=== PATIENT | male | born 1970 | race Caucasian/White ===

== ENCOUNTER 2016-12-03 23:48 | Emergency (ER) | payer SELFPAY ==
[~2016-12-03] VITALS: Ht 185.4 cm; Wt 120.2 kg
[~2016-12-03 23:48] MED LIST: ALLP100T PO; CYCL5TAB11 PO; INDO25CA PO
[2016-12-04] MEDS ORDERED: NS IV 1000 ML 1,000 ML IV ONE (00:54)
[2016-12-04 01:37] LABS: BASOPHILS % (AUTO) 0 % (0-10); EOSINOPHILS # (AUTO) 0.1 10^3/uL (0.0-0.3); EOSINOPHILS % (AUTO) 1 % (0-10); LYMPHOCYTES # (AUTO) 2.1 X 10^3 (1.0-4.0); LYMPHOCYTES % (AUTO) 27 % (12-44); MEAN CORPUSCULAR HEMOGLOBIN 31 PG (25-34); MEAN CORPUSCULAR HGB CONC 35 G/DL (32-36); MEAN CORPUSCULAR VOLUME 89 FL (80-99); MEAN PLATELET VOLUME 11.6 FL (7.4-10.4); MONOCYTES # (AUTO) 0.6 X 10^3 (0.0-1.0); MONOCYTES % (AUTO) 8 % (0-12); NEUTROPHILS # (AUTO) 4.8 X 10^3 (1.8-7.8); NEUTROPHILS % (AUTO) 63 % (42-75); PLATELET COUNT 221 10^3/uL (130-400); RED BLOOD COUNT 4.52 10^6/uL (4.35-5.85); WHITE BLOOD COUNT 7.7 10^3/uL (4.3-11.0)
[2016-12-04 02:02] LABS: ALANINE AMINOTRANSFERASE 40 U/L (0-55); ALBUMIN 4.4 GM/DL (3.2-4.5); ALCOHOL 174 MG/DL (<10); ANION GAP 12 MMOL/L (5-14); ASPARTATE AMINO TRANSFERASE 35 U/L (5-34); BILIRUBIN,TOTAL 0.5 MG/DL (0.1-1.0); BLOOD UREA NITROGEN 12 MG/DL (7-18); BUN/CREATININE RATIO 9; CALCIUM 9.8 MG/DL (8.5-10.1); CARBON DIOXIDE 24 MMOL/L (21-32); CHLORIDE 99 MMOL/L (98-107); CREATININE SERUM 1.33 MG/DL (0.60-1.30); GFR ESTIMATED 59; GLUCOSE 131 MG/DL (70-105); MAGNESIUM 2.6 MG/DL (1.8-2.4); POTASSIUM 4.1 MMOL/L (3.6-5.0); SODIUM 135 MMOL/L (135-145); TOTAL PROTEIN 8.2 GM/DL (6.4-8.2)
[2016-12-04 02:31] LABS: TROPONIN I < 0.30 NG/ML (<0.30)
--- NOTE | 2016-12-04 02:36 | ED Syncope ---
General Chief Complaint: Dizziness/Syncope Stated Complaint: POSS SEIZURE Nursing Triage Note: approx. 30 second syncopal episode while playing cards. no injury/other complaints. Allergies and Home Medications Allergies Coded Allergies: No Known Drug Allergies (Unverified , 08/05/12) Home Medications Allopurinol 100 Mg Tab, 100 MG PO DAILY, (Reported) Cyclobenzaprine Hcl 5 Mg Tablet, 1 EACH PO Q8HR PRN, (Reported) Indomethacin 25 Mg Capsule, 25 MG PO DAILY, (Reported) Past Lbdsemq-Ibbqvw-Gpoypp Hx Patient Social History Alcohol Use: Occasionally Uses Recreational Drug Use: No Smoking Status: Current Everyday Smoker Type Used: Cigarettes 2nd Hand Smoke Exposure: Yes Recent Foreign Travel: No Contact w/Someone Who Travel: No Recent Infectious Disease Expo: No Recent Hopitalizations: No Immunizations Up To Date Tetanus Booster (TDap): Unknown Seasonal Allergies Seasonal Allergies: No Surgeries HX Surgeries: Yes (R ARM) Surgeries: Orthopedic Respiratory Hx Respiratory Disorders: No Cardiovascular Hx Cardiac Disorders: Yes Cardiac Disorders: High Cholesterol, Hypertension Neurological Hx Neurological Disorders: No Genitourinary Hx Genitourinary Disorders: No Gastrointestinal Hx Gastrointestinal Disorders: No Musculoskeletal Hx Musculoskeletal Disorders: No Endocrine Hx Endocrine Disorders: No HEENT HX ENT Disorders: No Cancer Hx Cancer: No Psychosocial Hx Psychiatric Problems: No Integumentary HX Skin/Integumentary Disorder: No Blood Transfusions Hx Blood Disorders: No Adverse Reaction to a Blood Tr: No Physical Exam Vital Signs Vital Sign - Last 12Hours 12/03/16 23:55 Temp 97.9 Pulse 107 Resp 18 B/P (MAP) 153/102 Pulse Ox 94 O2 Delivery Room Air Capillary Refill : Less Than 3 Seconds Progress/Results/Core Measures Results/Orders Lab Results Laboratory Tests Test 12/04/16 01:05 Range/Units White Blood Count 7.7 4.3-11.0 10^3/uL Red Blood Count 4.52 4.35-5.85 10^6/uL Hemoglobin 14.2 13.3-17.7 G/DL Hematocrit 40 40-54 % Mean Corpuscular Volume 89 80-99 FL Mean Corpuscular Hemoglobin 31 25-34 PG Mean Corpuscular Hemoglobin Concent 35 32-36 G/DL Red Cell Distribution Width 13.0 10.0-14.5 % Platelet Count 221 130-400 10^3/uL Mean Platelet Volume 11.6 H 7.4-10.4 FL Neutrophils (%) (Auto) 63 42-75 % Lymphocytes (%) (Auto) 27 12-44 % Monocytes (%) (Auto) 8 0-12 % Eosinophils (%) (Auto) 1 0-10 % Basophils (%) (Auto) 0 0-10 % Neutrophils # (Auto) 4.8 1.8-7.8 X 10^3 Lymphocytes # (Auto) 2.1 1.0-4.0 X 10^3 Monocytes # (Auto) 0.6 0.0-1.0 X 10^3 Eosinophils # (Auto) 0.1 0.0-0.3 10^3/uL Basophils # (Auto) 0.0 0.0-0.1 10^3/uL Sodium Level 135 135-145 MMOL/L Potassium Level 4.1 3.6-5.0 MMOL/L Chloride Level 99 98-107 MMOL/L Carbon Dioxide Level 24 21-32 MMOL/L Anion Gap 12 5-14 MMOL/L Blood Urea Nitrogen 12 7-18 MG/DL Creatinine 1.33 H 0.60-1.30 MG/DL Estimat Glomerular Filtration Rate 59 BUN/Creatinine Ratio 9 Glucose Level 131 H 70-105 MG/DL Calcium Level 9.8 8.5-10.1 MG/DL Magnesium Level 2.6 H 1.8-2.4 MG/DL Total Bilirubin 0.5 0.1-1.0 MG/DL Aspartate Amino Transf (AST/SGOT) 35 H 5-34 U/L Alanine Aminotransferase (ALT/SGPT) 40 0-55 U/L Alkaline Phosphatase 58 40-136 U/L Troponin I < 0.30 <0.30 NG/ML Total Protein 8.2 6.4-8.2 GM/DL Albumin 4.4 3.2-4.5 GM/DL Serum Alcohol 174 H <10 MG/DL My Orders Orders - STEPHANIA LEHMAN MD Normal Saline 1000ml Iv (12/04/16 00:54) Alcohol (12/04/16 00:54) Cbc With Automated Diff (12/04/16 00:54) Comprehensive Metabolic Panel (12/04/16 00:54) Magnesium (12/04/16 00:54) Troponin I (12/04/16 00:54) Saline Lock/Iv-Start (12/04/16 00:54) Ekg Tracing (12/04/16 00:54) Monitor-Rhythm Ecg Trace Only (12/04/16 00:54) Chest Pa/Lat (2 View) (12/04/16 00:54) Medications Given in ED Current Medications Medications Dose Ordered Sig/Brisa Route Start Time Stop Time Status Last Admin Dose Admin Sodium Chloride 1,000 ml @ 0 mls/hr Q0M ONCE IV 12/04/16 00:54 12/04/16 00:56 DC 12/04/16 01:07 0 MLS/HR Vital Signs/I&O Vital Sign - Last 12Hours 12/03/16 12/04/16 23:55 02:43 Temp 97.9 97.9 Pulse 107 89 Resp 18 18 B/P (MAP) 153/102 Pulse Ox 94 98 O2 Delivery Room Air Blood Pressure Mean: 119 ECG Initial ECG Impression Date: Dec 04, 2016 Initial ECG Impression Time: 01:05 Initial ECG Rate: 92 Initial ECG Rhythm: Normal Sinus Initial ECG Intervals: Normal Comment Normal sinus rhythm with no ST elevation or depression. Borderline left axis deviation. No abnormal intervals. Departure Impression Impression: Primary Impression: Syncope Qualified Codes: R55 - Syncope and collapse Additional Impressions: Renal insufficiency Alcohol intoxication Qualified Codes: F10.929 - Alcohol use, unspecified with intoxication, unspecified Disposition: 01 HOME, SELF-CARE Condition: Improved Departure-Patient Inst. Decision time for Depature: 02:33 Referrals: NO,LOCAL PHYSICIAN (PCP/Family) Primary Care Physician Patient Instructions: Syncope (Fainting) (DC) Add. Discharge Instructions: Follow-up with a primary care provider soon as possible. Avoid alcohol consumption and work towards smoking cessation in the meantime. Return to care if symptoms return or worsen. Call a primary care provider tomorrow to schedule an appointment. All discharge instructions reviewed with patient and/or family. Voiced understanding. STEPHANIA LEHMAN MD Dec 04, 2016 02:36
[2016-12-04 02:43] VITALS: BP 155/109
--- NOTE | 2016-12-04 08:25 | Diagnostic Imaging Report ---
INDICATION: Syncope. TECHNIQUE: Two view chest 1:50 AM CORRELATION STUDY: 04/18/2014 FINDINGS: The heart size, mediastinal configuration and pulmonary vasculature are within normal limits. The lungs are clear with no consolidating infiltrate. There is no significant pleural effusion or pneumothorax. Visualized osseous structures are unremarkable. IMPRESSION: 1. Negative for acute abnormality. Dictated by: Dictated on workstation # [id number]
--- OUTSIDE RECORDS SUMMARY | 2016-12-04 09:40 | XMS REPORT ---
Author Author ANEL RICKS [facility] [place] eClinicalWorks Address Unknown Phone Unavailable Care Team Providers Care Prepress Proofer Name Role Phone ANEL RICKS CP Unavailable Allergies, Adverse Reactions, Alerts Substance Reaction Event Type N.K.D.A. Info Not Available Non Drug Allergy Problems Problem Type Condition Code Onset Dates Condition Status Problem Lumbago M54.5 Active Problem Hyperlipidemia E78.5 Active Problem GERD (gastroesophageal reflux disease) K21.9 Active Problem Elevated blood pressure reading without diagnosis of hypertension R03.0 Active Assessment Hyperlipidemia E78.5 Active Problem Allergic rhinitis J30.9 Active Problem History of gout Z87.39 Active Medications Medication Code System Code Instructions Start Date End Date Status Dosage Fish Oil [facility] [place] [address]-37 2000 Orally Once a day December 28, 2014 Jun 26, 2015 1 capsule Omeprazole [facility] [place] [address]-08 20 MG Orally Once a day Apr 10, 2015 1 capsule Lipitor [facility] [place] [address]-04 80 MG Orally Once a day Apr 16, 2015 1 tablet Procedures Procedure Coding System Code Date Office Visit, Est Pt., Level 3 CPT-4 63798 May 28, 2015 Vital Signs Date/Time: May 28, 2015 Temperature 97.1 F Weight 268.0 lbs Height 72 in BMI 36.34 Index Blood Pressure Diastolic 88 mmHg Blood Pressure Systolic 124 mmHg Cardiac Monitoring Heart Rate 78 bpm Results No Known Results Summary Purpose eClinicalWorks Submission
--- OUTSIDE RECORDS SUMMARY | 2016-12-04 09:40 | XMS REPORT | Continuity of Care Document ---
Author Author [facility] Address Unknown Phone Unavailable Allergies Active Description Code Type Severity Reaction Onset Reported/Identified Relationship to Patient Clinical Status Yes No Known Drug Allergies [id number] Drug Allergy Unknown N/ A 08/05/2012 Medications Problems Date Dx Coded Attending Type Code Diagnosis Diagnosed By 01/16/2009 SHUKLA DO, YOON K V74.1 SCREENING EXAMINATION FOR PULMONARY TUBERCULOSIS 01/16/2009 SHUKLA DO, YOON K V74.1 SCREENING EXAMINATION FOR PULMONARY TUBERCULOSIS 01/16/2009 SHUKLA DO, YOON K V74.1 SCREENING EXAMINATION FOR PULMONARY TUBERCULOSIS 01/16/2009 SHUKLA DO, YOON K V74.1 SCREENING EXAMINATION FOR PULMONARY TUBERCULOSIS 07/12/2012 SHUKLA DO, YOON K 274.9 GOUT UNSPECIFIED 07/12/2012 SHUKLA DO, YOON K 274.9 Gout Unspecified 07/12/2012 SHUKLA DO, YOON K 274.9 Gout Unspecified 07/12/2012 SHUKLA DO, YOON K 274.9 Gout Unspecified 07/22/2012 SHUKLA DO, YOON K 530.81 GERD 07/22/2012 SHUKLA DO, YOON K 724.2 LUMBAGO 07/22/2012 SHUKLA DO, YOON K 786.50 CHEST PAIN 07/22/2012 SHUKLA DO, YOON K 530.81 GERD 07/22/2012 SHUKLA DO, YOON K 724.2 LUMBAGO 07/22/2012 SHUKLA DO, YOON K 786.50 chest pain or discomfort 07/22/2012 SHUKLA DO, YOON K 530.81 GERD 07/22/2012 SHUKLA DO, YOON K 724.2 LUMBAGO 07/22/2012 SHUKLA DO, YOON K 786.50 chest pain or discomfort 08/05/2012 SHUKLA DO, YOON K 272.4 DYSLIPIDEMIA 08/05/2012 SHUKLA DO, YOON K 272.4 DYSLIPIDEMIA 08/05/2012 SHUKLA DO, YOON K 272.4 DYSLIPIDEMIA 09/28/2013 SHUKLA DO, YOON K 274.00 GOUTY ARTHROPATHY UNSPECIFIED 09/28/2013 YOON SHUKLA DO 477.9 ALLERGIC RHINITIS CAUSE UNSPECIFIED Procedures Code [place] [address] ROUTINE VENIPUNCTURE 07/22/2012 33893 CBC 07/22/2012 64687 LIPID PANEL 07/22 55275 CMP 07/22/2012 7115113 GFR CALC (RESULT ONLY) 07/22/2012 99840 TSH 07/22/2012 93610 EKG, TRACING (IN-HOUSE) 07/27/2012 Results Encounters ACCT No. Visit Date/Time Discharge Status Pt. Type Provider Facility Loc./Unit Complaint [id number] 09/28/2013 13:35:00 09/28/2013 23: 59:59 CLS Outpatient YOON SHUKLA DO [id number] 08/27/2012 11:05:00 08/27/2012 23: 59:59 CLS Outpatient YOON SHUKLA DO [id number] 07/22/2012 09:07:00 07/22/2012 23: 59:59 CLS Outpatient YOON SHUKLA DO [id number] 07/12/2012 17:13:00 07/12/2012 23: 59:59 CLS Outpatient YOON SHUKLA DO
--- OUTSIDE RECORDS SUMMARY | 2016-12-04 09:40 | XMS REPORT ---
Author Author ANEL RICKS eClinicalWorks Address Unknown Phone Unavailable Care Team Providers Care Entry Level Account Manager Name Role Phone ANEL RICKS CP Unavailable Allergies, Adverse Reactions, Alerts Substance Reaction Event Type N.K.D.A. Info Not Available Non Drug Allergy Problems Problem Type Condition Code Onset Dates Condition Status Assessment Hyperlipidemia E78.5 Active Assessment Elevated blood pressure reading without diagnosis of hypertension R03.0 Active Problem Lumbago M54.5 Active Problem Hyperlipidemia E78.5 Active Problem GERD (gastroesophageal reflux disease) K21.9 Active Problem Elevated blood pressure reading without diagnosis of hypertension R03.0 Active Assessment GERD (gastroesophageal reflux disease) K21.9 Active Problem Allergic rhinitis J30.9 Active Problem History of gout Z87.39 Active Medications Medication Code System Code Instructions Start Date End Date Status Dosage Omeprazole [facility] [address]-88 20 MG Orally Once a day Apr 10, 2015 1 capsule Lipitor [facility] [address]-61 40 MG Orally Once a day December 28, 2014 1 tablet Procedures Procedure Coding System Code Date VENIPUNCT, ROUTINE* CPT-4 37091 Apr 10, 2015 Office Visit, Est Pt., Level 3 CPT-4 45111 Apr 10, 2015 LIPID PANEL CPT-4 64537 Apr 10, 2015 Vital Signs Date/Time: Apr 10, 2015 Temperature 98.0 F Weight 265.9 lbs Height 72 in BMI 36.06 Index Blood Pressure Diastolic 94 mmHg Blood Pressure Systolic 128 mmHg Cardiac Monitoring Heart Rate 84 bpm Results Name Result Date Reference Range Unit Abnormality Flag ROUTINE VENIPUNCTURE Summary Purpose eClinicalWorks Submission
--- OUTSIDE RECORDS SUMMARY | 2016-12-04 09:40 | XMS REPORT ---
Author Author ANEL RICKS [facility] eClinicalWorks Address Unknown Phone Unavailable Care Team Providers Care Disease Control Inspector Name Role Phone ANEL RICKS CP Unavailable Allergies No Known Allergies Problems Problem Type Condition Code Onset Dates Condition Status Problem Lumbago M54.5 Active Problem Hyperlipidemia E78.5 Active Problem GERD (gastroesophageal reflux disease) K21.9 Active Problem Elevated blood pressure reading without diagnosis of hypertension R03.0 Active Problem Allergic rhinitis J30.9 Active Problem History of gout Z87.39 Active Medications Medication Code System Code Instructions Start Date End Date Status Dosage Lipitor [facility] [address]-47 80 MG Orally Once a day Apr 16, 2015 1 tablet Results No Known Results Summary Purpose eClinicalWorks Submission
== END 2016-12-04 02:39 | disposition home or self-care (01) ==
LOC: ER 23:48 → EDUNIT# 23:48 → ER 12-04 02:39
DX: R55 Syncope and collapse (principal); N28.9 Disorder of kidney and ureter, unspecified; F10.129 Alcohol abuse with intoxication, unspecified
CPT/HCPCS: 36415; 71020; 80053; 80320; 83735; 84484; 85025; 93005; 93041; 96360

== ENCOUNTER 2019-06-13 23:21 | Emergency (ER) | payer SELFPAY ==
[~2019-06-13] VITALS: Ht 182 cm; Wt 125.0 kg
[2019-06-13] MEDS ORDERED: ASPIRIN 81 MG CHEW (CHILDREN'S ASA) ONE (23:32)
--- NOTE | 2019-06-13 23:40 | ED General ---
General Stated Complaint: FEELS HOT,DIZZY, LEFT ARM NUMBNESS Source of Information: Patient, Other Exam Limitations: No Limitations History of Present Illness Date Seen by Provider: Jun 13, 2019 Time Seen by Provider: 23:27 Initial Comments Patient presents to ER with his friend by private conveyance with a chief complaint of approximately one to 2 hours prior to arrival he started to experience some dizziness, hot flashes, left arm numbness while laying down the couch watching TV. The night before he had a binge of drinking and smoking. He's never had an experience like this before. He says he sat up on the couch and his symptoms got better. He denies turning over moving his head when the symptoms started. He describes the dizziness as feeling like he was moving as well as like he might pass out. He states that it lasted for a few minutes and went away. No known medical history other than history of high blood pressure but he does not follow with a doctor nor take any medication. He uses marijuana occasionally. On regular basis he smokes one or 2 cigarettes per day and typically binge drinks alcohol. He denies any other recreational drugs. He denies any nausea vomiting diarrhea constipation or abdominal pain chest pain shortness of breath cough wheezing. He does not follow with a primary care provider. He does not have any gainful employment at this time. He has a history of vasovagal syncope. Allergies and Home Medications Allergies Coded Allergies: No Known Drug Allergies (Unverified , 08/05/12) Home Medications Allopurinol 100 Mg Tab, 100 MG PO DAILY, (Reported) Cyclobenzaprine Hcl 5 Mg Tablet, 1 EACH PO Q8HR PRN, (Reported) Indomethacin 25 Mg Capsule, 25 MG PO DAILY, (Reported) Patient Home Medication List Home Medication List Reviewed: Yes Review of Systems Review of Systems Constitutional: No chills, No diaphoresis EENTM: No ear discharge, No hearing loss Respiratory: No cough, No short of breath Cardiovascular: No chest pain, No edema Gastrointestinal: No abdominal pain, No constipation, No diarrhea, No nausea Genitourinary: No discharge, No dysuria Musculoskeletal: No back pain, No joint pain Skin: No pruritus, No rash Psychiatric/Neurological: Denies Headache, Denies Numbness, Denies Paresthesia Hematologic/Lymphatic: Denies Blood Clots, Denies Easy Bleeding All Other Systems Reviewed Negative Unless Noted: Yes Past Ulowvxv-Yrbwkt-Togyao Hx Patient Social History Alcohol Use: Regular Use Alcohol Beverage of Choice: Whiskey Recreational Drug Use: Yes Drug of Choice: MJ Smoking Status: Current Everyday Smoker Type Used: Cigarettes 2nd Hand Smoke Exposure: Yes Recent Foreign Travel: No Contact w/Someone Who Travel: No Recent Hopitalizations: No Immunizations Up To Date Tetanus Booster (TDap): Unknown Seasonal Allergies Seasonal Allergies: No Past Medical History Surgeries: Yes (R ARM) Orthopedic Respiratory: No Cardiac: Yes High Cholesterol, Hypertension Neurological: No Genitourinary: No Gastrointestinal: No Musculoskeletal: No Endocrine: No HEENT: No Cancer: No Psychosocial: No Integumentary: No Blood Disorders: No Adverse Reaction/Blood Tranf: No Family Medical History Diabetes Physical Exam Vital Signs Vital Signs - First Documented 06/13/19 23:59 Temp 36.4 Pulse 103 Resp 14 B/P (MAP) 192/118 (142) Pulse Ox 98 O2 Delivery Room Air Capillary Refill : Height, Weight, BMI Height: 6'1.00" Weight: 265lbs. oz. 120.885877cv; BMI Method:Stated General Appearance: No Apparent Distress, Anxious, Obese Eyes: Bilateral Eye Normal Inspection, Bilateral Eye PERRL, Bilateral Eye EOMI HEENT: PERRL/EOMI, Pharynx Normal, Moist Mucous Membranes, TM Abnormal (L), TM Abnormal (R) (bilateral, mucoid, nonerythematous/noninjected mucoid effusion) Neck: Full Range of Motion, Normal Inspection, Non Tender Respiratory: Chest Non Tender, Lungs Clear, Normal Breath Sounds, No Accessory Muscle Use, No Respiratory Distress Cardiovascular: Regular Rate, Rhythm, No Edema, Normal Peripheral Pulses Gastrointestinal: Normal Bowel Sounds, Non Tender, Soft Extremity: Normal Capillary Refill, Normal Inspection, No Pedal Edema Neurologic/Psychiatric: Alert, Oriented x3, No Motor/Sensory Deficits, Normal Mood/Affect, netsuite developer II-XII Norm as Tested Skin: Normal Color, Warm/Dry Progress/Results/Core Measures Suspected Sepsis SIRS Temperature: Pulse: Respiratory Rate: Laboratory Tests 06/13/19 23:53: White Blood Count 7.3 Blood Pressure / Mean: Laboratory Tests 06/13/19 23:53: Creatinine 1.21, Platelet Count 208, Total Bilirubin 0.3 Results/Orders Lab Results Laboratory Tests Test 06/13/19 23:53 Range/Units White Blood Count 7.3 4.3-11.0 10^3/uL Red Blood Count 4.60 4.35-5.85 10^6/uL Hemoglobin 14.9 13.3-17.7 G/DL Hematocrit 41 40-54 % Mean Corpuscular Volume 89 80-99 FL Mean Corpuscular Hemoglobin 32 25-34 PG Mean Corpuscular Hemoglobin Concent 37 H 32-36 G/DL Red Cell Distribution Width 12.4 10.0-14.5 % Platelet Count 208 130-400 10^3/uL Mean Platelet Volume 11.1 H 7.4-10.4 FL Neutrophils (%) (Auto) 63 42-75 % Lymphocytes (%) (Auto) 26 12-44 % Monocytes (%) (Auto) 9 0-12 % Eosinophils (%) (Auto) 2 0-10 % Basophils (%) (Auto) 0 0-10 % Neutrophils # (Auto) 4.6 1.8-7.8 X 10^3 Lymphocytes # (Auto) 1.9 1.0-4.0 X 10^3 Monocytes # (Auto) 0.7 0.0-1.0 X 10^3 Eosinophils # (Auto) 0.1 0.0-0.3 10^3/uL Basophils # (Auto) 0.0 0.0-0.1 10^3/uL Sodium Level 138 135-145 MMOL/L Potassium Level 4.3 3.6-5.0 MMOL/L Chloride Level 104 98-107 MMOL/L Carbon Dioxide Level 19 L 21-32 MMOL/L Anion Gap 15 H 5-14 MMOL/L Blood Urea Nitrogen 16 7-18 MG/DL Creatinine 1.21 0.60-1.30 MG/DL Estimat Glomerular Filtration Rate > 60 BUN/Creatinine Ratio 13 Glucose Level 190 H 70-105 MG/DL Calcium Level 9.6 8.5-10.1 MG/DL Corrected Calcium 9.4 8.5-10.1 MG/DL Magnesium Level 1.8 1.6-2.4 MG/DL Total Bilirubin 0.3 0.1-1.0 MG/DL Aspartate Amino Transf (AST/SGOT) 27 5-34 U/L Alanine Aminotransferase (ALT/SGPT) 26 0-55 U/L Alkaline Phosphatase 67 40-136 U/L B-Type Natriuretic Peptide < 10.0 <100.0 PG/ML Total Protein 8.5 H 6.4-8.2 GM/DL Albumin 4.2 3.2-4.5 GM/DL My Orders Orders - SHAUNA WAY Aspirin Chewable Tablet (Baby Aspirin Ch (06/13/19 23:32) Cbc With Automated Diff (06/13/19 23:35) Magnesium (06/13/19 23:35) Chest 1 View, Ap/Pa Only (06/13/19 23:35) Ekg Tracing (06/13/19 23:35) Comprehensive Metabolic Panel (06/13/19 23:35) Myoglobin Serum (06/13/19 23:35) Protime With Inr (06/13/19 23:35) Partial Thromboplastin Time (06/13/19 23:35) O2 (06/13/19 23:35) Monitor-Rhythm Ecg Trace Only (06/13/19 23:35) Lipid Panel (06/14/19 06:00) Ed Iv/Invasive Line Start (06/13/19 23:35) BNP (06/13/19 23:35) Aspirin Chewable Tablet (Baby Aspirin Ch (06/13/19 23:45) Orthostatic Vital Signs (Adult (06/13/19 23:35) Ua Culture If Indicated (06/13/19 23:40) Drug Screen Stat (Urine) (06/13/19 23:40) Alcohol (06/13/19 23:53) Troponin I (06/13/19 23:53) Medications Given in ED Current Medications Medications Dose Ordered Sig/Brisa Route Start Time Stop Time Status Last Admin Dose Admin Aspirin 324 mg ONCE ONCE PO 06/13/19 23:45 06/13/19 23:46 DC 06/13/19 23:51 324 MG Vital Signs/I&O 06/13/19 06/13/19 23:59 23:59 Temp 36.4 Pulse 103 Resp 14 B/P (MAP) 192/118 (142) Pulse Ox 98 99 O2 Delivery Room Air Nasal Cannula Capillary Refill : Progress Note #1: Time: 23:43 Progress Note Vertigo versus atypical chest pain/angina? His hypertension is markedly 200/120. We'll give him a brief period For it to come down. EKG, chest x-ray, aspirin labs urinalysis, urine drug screen and alcohol level. Progress Note #2: Time: 00:28 Progress Note Blood pressure down to 150/100 spontaneously and his heart rates in the 80s. [place]-Hallpike was unsuccessful of reproducing any vertiginous symptoms. He has a stated history of vasovagal syncope. If his orthostatics are negative then we'll probably recommend he follow up with a primary care provider to discuss his high blood pressure and his symptoms as they may be related. We could start him on a low-dose amlodipine 5 mg daily for a week or 2. I don't suspect he'll be able to provide any urine today. This can be checked outpatient. If he was using any stimulant recreational democrat drugs last night then this could also contribute to his symptoms today. Orthostatics are unremarkable. ECG Initial ECG Impression Date: Jun 13, 2019 Initial ECG Impression Time: 23:32 Initial ECG Rate: 86 Initial ECG Rhythm: Normal Sinus Initial ECG Intervals: Normal Initial ECG Impression: Normal Initial ECG Comparisson: No Previous ECG Available Comment No clinically relevant ST elevation or depression. Normal sinus rhythm. Diagnostic Imaging Diagonstic Imaging: Xray Plain Films/CT/US/NM/MRI: chest Comments No acute cardiopulmonary processes noted on one view chest x-ray. Reviewed: Reviewed by Me Departure Impression Primary Impression: Dizziness Disposition: 01 HOME, SELF-CARE Condition: Stable Departure-Patient Inst. Decision time for Depature: 00:34 Referrals: NO,LOCAL PHYSICIAN (PCP/Family) Primary Care Physician Patient Instructions: High Blood Pressure in Adults, LOCAL PHYSICIAN LIST, Vertigo (a Type of Dizziness) (DC) Add. Discharge Instructions: Follow-up with the primary care provider choice. There is some further workup for your heart that can be done on the outpatient side. They can also help get your blood pressure under control which might be contributing to your symptoms. Return to the ER if you begin to experience chest pain, shortness of breath or worrisome symptoms. amlodipine 5mg daily for blood pressure. Scripts Amlodipine Besylate (Amlodipine Besylate) 5 Mg Tablet 5 MG PO DAILY for 14 Days, #14 TAB 0 Refills Prov: SHAUNA WAY 06/14/[address] Jun 13, 2019 23:40
[2019-06-13] MEDS ORDERED: ASPIRIN 81 MG CHEW (CHILDREN'S ASA) PO ONE (23:45)
[2019-06-13 23:59] LABS: BASOPHILS % (AUTO) 0 % (0-10); EOSINOPHILS # (AUTO) 0.1 10^3/uL (0.0-0.3); EOSINOPHILS % (AUTO) 2 % (0-10); HEMATOCRIT 41 % (40-54); HEMOGLOBIN 14.9 G/DL (13.3-17.7); LYMPHOCYTES # (AUTO) 1.9 X 10^3 (1.0-4.0); LYMPHOCYTES % (AUTO) 26 % (12-44); MEAN CORPUSCULAR HEMOGLOBIN 32 PG (25-34); MEAN CORPUSCULAR HGB CONC 37 G/DL (32-36); MEAN CORPUSCULAR VOLUME 89 FL (80-99); MEAN PLATELET VOLUME 11.1 FL (7.4-10.4); MONOCYTES # (AUTO) 0.7 X 10^3 (0.0-1.0); MONOCYTES % (AUTO) 9 % (0-12); NEUTROPHILS # (AUTO) 4.6 X 10^3 (1.8-7.8); NEUTROPHILS % (AUTO) 63 % (42-75); PLATELET COUNT 208 10^3/uL (130-400); RED CELL DISTRIBUTION WIDTH 12.4 % (10.0-14.5); WHITE BLOOD COUNT 7.3 10^3/uL (4.3-11.0)
[2019-06-14 00:13] LABS: PROTHROMBIN TIME PATIENT 13.7 SEC (12.2-14.7)
[2019-06-14 00:25] LABS: ALANINE AMINOTRANSFERASE 26 U/L (0-55); ALBUMIN 4.2 GM/DL (3.2-4.5); ALKALINE PHOSPHATASE 67 U/L (40-136); BILIRUBIN,TOTAL 0.3 MG/DL (0.1-1.0); BUN/CREATININE RATIO 13; CALCIUM 9.6 MG/DL (8.5-10.1); CARBON DIOXIDE 19 MMOL/L (21-32); CHLORIDE 104 MMOL/L (98-107); CREATININE SERUM 1.21 MG/DL (0.60-1.30); GFR ESTIMATED > 60; GLUCOSE 190 MG/DL (70-105); MAGNESIUM 1.8 MG/DL (1.6-2.4); POTASSIUM 4.3 MMOL/L (3.6-5.0); SODIUM 138 MMOL/L (135-145); TOTAL PROTEIN 8.5 GM/DL (6.4-8.2)
[2019-06-14] MEDS ORDERED: AMLO5TAB9 PO (00:41)
[2019-06-14 01:01] VITALS: BP_SYST 156; BP_SYST 166; BP_DIAS 107; BP_DIAS 120
--- NOTE | 2019-06-14 07:12 | Diagnostic Imaging Report ---
CHEST 1 VIEW, AP/PA ONLY Indication: Sensation of hot and dizziness. Cough and congestion Comparison: 12/04/2016 Findings: No focal airspace disease in the visualized lungs. Please note that the posterior lower lobes are poorly evaluated by portable radiography. No pleural effusion or pneumothorax. Normal cardiomediastinal silhouette. Impression: 1. No acute cardiopulmonary process by portable radiography. Dictated by: Dictated on workstation # [id number]
== END 2019-06-14 01:05 | disposition home or self-care (01) ==
LOC: EDUNIT# 23:21 → ER 23:24
DX: R42 Dizziness and giddiness (principal); I10 Essential (primary) hypertension; E78.00 Pure hypercholesterolemia, unspecified; F17.210 Nicotine dependence, cigarettes, uncomplicated
CPT/HCPCS: 36415; 71045; 80053; 80320; 83735; 83874; 83880; 84484; 85025; 85610; 85730; 93005; 93041

== ENCOUNTER 2020-07-19 16:43 | Emergency (ER) | payer SELFPAY ==
[~2020-07-19] VITALS: Ht 182 cm; Wt 117.0 kg
[~2020-07-19 16:43] MED LIST changes: +AMLO-250 PO
[2020-07-19] MEDS ORDERED: ASPIRIN 81 MG CHEW (CHILDREN'S ASA) PO ONE (17:00)
--- NOTE | 2020-07-19 17:00 | ED Chest Pain ---
General Stated Complaint: CHEST PRESSURE Source: patient Exam Limitations: no limitations (SHAUNA WAY) History of Present Illness Date Seen by Provider: Jul 19, 2020 Time Seen by Provider: 16:45 Initial Comments Patient presents ER by private conveyance with chief complaint that approximately 2 hours prior to arrival he began to experience some pain and pressure across his chest not reproducible to direct palpation or deep inspiration. Patient says he has a history of high blood pressure but recently had labs by [facility] and has normal cholesterol no diabetes and no significant primary familial history of heart disease nor does he a personal history. He does smoke cigarettes and occasionally drinks alcohol. He says last night he was playing cards with some friends and drank a few more than he would typically drink in a setting and was thinking that maybe this was just related to a hangover. He is not having any nausea sweats or radiation of pain. No shortness of air cough fever chills or sick contacts. Patient denies a history of GERD but he does note he has a lot of anxiety. Patient did take 2 tablets of aspirin at the start of his pain and another 2 tablets an hour later. (SHAUNA WAY) Allergies and Home Medications Allergies Coded Allergies: No Known Drug Allergies (Unverified , 08/05/12) Home Medications Allopurinol 100 Mg Tab, 100 MG PO DAILY, (Reported) Amlodipine Besylate 5 Mg Tablet, 5 MG PO DAILY Prescribed by: SHAUNA WAY on 06/14/19 0041 Cyclobenzaprine Hcl 5 Mg Tablet, 1 EACH PO Q8HR PRN, (Reported) Indomethacin 25 Mg Capsule, 25 MG PO DAILY, (Reported) Patient Home Medication List Home Medication List Reviewed: Yes (SHAUNA WAY) Review of Systems Review of Systems Constitutional: No chills, No diaphoresis EENTM: No Blurred Vision, No Double Vision Respiratory: Denies Cough, Denies Shortness of Air Cardiovascular: See HPI, Chest Pain; Denies Edema Gastrointestinal: Denies Abdomen Distended, Denies Abdominal Pain Genitourinary: Denies Burning, Denies Discharge Musculoskeletal: No back pain, No joint pain Psychiatric/Neurological: See HPI, Anxiety; Denies Depressed (SHAUNA WAY) All Other Systems Reviewed Negative Unless Noted: Yes (SHAUNA WAY) Past Ltpissu-Negqzx-Mcagmn Hx Patient Social History Alcohol Beverage of Choice: Whiskey Drug of Choice: MJ Type Used: Cigarettes 2nd Hand Smoke Exposure: Yes Recent Hopitalizations: No (SHAUNA WAY) Immunizations Up To Date Tetanus Booster (TDap): Unknown (SHAUNA WAY) Seasonal Allergies Seasonal Allergies: No (SHAUNA WAY) Past Medical History Surgeries: Yes (R ARM) Orthopedic Respiratory: No Cardiac: Yes High Cholesterol, Hypertension Neurological: No Genitourinary: No Gastrointestinal: No Musculoskeletal: No Endocrine: No HEENT: No Cancer: No Psychosocial: No Integumentary: No Blood Disorders: No Adverse Reaction/Blood Tranf: No (SHAUNA WAY) Family Medical History Diabetes (SHAUNA WAY) Physical Exam Vital Signs Vital Signs - First Documented 07/19/20 16:43 Temp 34.0 Pulse 99 Resp 16 B/P (MAP) 154/111 (125) Pulse Ox 99 (ARIEL GAMBOA APRN) Vital Signs Capillary Refill : (SHAUNA WAY) Height, Weight, BMI Height: 6'1.00" Weight: 265lbs. oz. 120.755970ou; 37.00 BMI Method:Stated General Appearance: WD/WN, Anxious HEENT: PERRL/EOMI, Pharynx Normal, Moist Mucous Membranes Neck: Normal Inspection, Non Tender Respiratory: Chest Non Tender, Lungs Clear, Normal Breath Sounds, No Accessory Muscle Use, No Respiratory Distress Cardiovascular: Regular Rate, Rhythm, No Edema, Normal Peripheral Pulses Gastrointestinal: Non Tender, Soft Extremity: Normal Capillary Refill, Normal Inspection, No Pedal Edema Neurologic/Psychiatric: Alert, Oriented x3 Skin: Normal Color, Warm/Dry (SHAUNA WAY) Progress/Results/Core Measures Results/Orders Lab Results Laboratory Tests Test 07/19/20 16:50 Range/Units White Blood Count 9.2 4.3-11.0 10^3/uL Red Blood Count 4.54 4.30-5.52 10^6/uL Hemoglobin 14.2 13.3-17.7 g/dL Hematocrit 41 40-54 % Mean Corpuscular Volume 90 80-99 fL Mean Corpuscular Hemoglobin 31 25-34 pg Mean Corpuscular Hemoglobin Concent 35 32-36 g/dL Red Cell Distribution Width 12.2 10.0-14.5 % Platelet Count 251 130-400 10^3/uL Mean Platelet Volume 11.7 9.0-12.2 fL Immature Granulocyte % (Auto) 1 % Neutrophils (%) (Auto) 66 42-75 % Lymphocytes (%) (Auto) 22 12-44 % Monocytes (%) (Auto) 8 0-12 % Eosinophils (%) (Auto) 2 0-10 % Basophils (%) (Auto) 1 0-10 % Neutrophils # (Auto) 6.1 1.8-7.8 10^3/uL Lymphocytes # (Auto) 2.1 1.0-4.0 10^3/uL Monocytes # (Auto) 0.8 0.0-1.0 10^3/uL Eosinophils # (Auto) 0.2 0.0-0.3 10^3/uL Basophils # (Auto) 0.1 0.0-0.1 10^3/uL Immature Granulocyte # (Auto) 0.1 0.0-0.1 10^3/uL Prothrombin Time 13.2 12.2-14.7 SEC INR Comment 1.0 0.8-1.4 Activated Partial Thromboplast Time 32 24-35 SEC Sodium Level 136 135-145 MMOL/L Potassium Level 4.1 3.6-5.0 MMOL/L Chloride Level 101 98-107 MMOL/L Carbon Dioxide Level 23 21-32 MMOL/L Anion Gap 12 5-14 MMOL/L Blood Urea Nitrogen 12 7-18 MG/DL Creatinine 1.19 0.60-1.30 MG/DL Estimat Glomerular Filtration Rate > 60 BUN/Creatinine Ratio 10 Glucose Level 103 70-105 MG/DL Calcium Level 9.2 8.5-10.1 MG/DL Corrected Calcium 8.5-10.1 MG/DL Magnesium Level 2.1 1.6-2.4 MG/DL Total Bilirubin 0.4 0.1-1.0 MG/DL Aspartate Amino Transf (AST/SGOT) 23 5-34 U/L Alanine Aminotransferase (ALT/SGPT) 22 0-55 U/L Alkaline Phosphatase 63 40-136 U/L Myoglobin 68.7 10.0-92.0 NG/ML Troponin I < 0.028 <0.028 NG/ML B-Type Natriuretic Peptide < 10.0 <100.0 PG/ML Total Protein 8.0 6.4-8.2 GM/DL Albumin 4.6 H 3.2-4.5 GM/DL (ARIEL GAMBOA APRN) My Orders Orders - ARIEL GAMBOA APRN Cbc With Automated Diff (07/19/20 16:47) Magnesium (07/19/20 16:47) Chest 1 View, Ap/Pa Only (07/19/20 16:47) Ekg Tracing (07/19/20 16:47) Comprehensive Metabolic Panel (07/19/20 16:47) Myoglobin Serum (07/19/20 16:47) Protime With Inr (07/19/20 16:47) Partial Thromboplastin Time (07/19/20 16:47) O2 (07/19/20 16:47) Monitor-Rhythm Ecg Trace Only (07/19/20 16:47) Lipid Panel (07/20/20 06:00) Ed Iv/Invasive Line Start (07/19/20 16:47) BNP (07/19/20 16:47) Troponin I (07/19/20 16:47) Aspirin Chewable Tablet (Baby Aspirin Ch (07/19/20 17:00) (ARIEL GAMBOA APRN) Vital Signs/I&O 07/19/20 16:43 Temp 34.0 Pulse 99 Resp 16 B/P (MAP) 154/111 (125) Pulse Ox 99 (ARIEL GAMBOA APRN) Progress Progress Note #1: Time: 16:59 Progress Note The patient has already received 4 tablets of aspirin at home. We will give him some nitroglycerin as he does have significantly elevated blood pressure 1 60-1 80 systolic on arrival. This could all be related to anxiety and his late-night drinking. If nitroglycerin fails to produce a sufficient effect we may try GI cocktail. Initial EKG is okay. Labs and chest x-ray next. Progress Note #2: Time: 17:47 Progress Note First troponin is normal. Patient declined the Xanax for his anxiety. Care of the patient's been turned over to Ariel Gamboa, nurse practitioner. Plan will be to repeat a delta troponin at 1850 and if that is negative let him go home with follow-up with cardiology. GI cocktail is recommended. (SHAUNA WAY) Initial ECG Impression Date: Jul 19, 2020 Initial ECG Impression Time: 16:49 Initial ECG Rate: 92 Initial ECG Rhythm: Normal Sinus Initial ECG Intervals: Normal Initial ECG Impression: Normal Initial ECG Comparisson: Unchanged Comment Normal sinus rhythm without clinically relevant ST elevation or depression. Borderline LVH. (SHAUNA WAY) Diagnostic Imaging Diagonstic Imaging: Xray Plain Films/CT/US/NM/MRI: chest Comments NAME: [facility] REC#: [id number] PT STATUS: REG ER : 1970 PHYSICIAN: ARIEL GAMBOA APRN ADMIT DATE: 07/19/20/ER Draft Date of Exam:07/19/20 CHEST 1 VIEW, AP/PA ONLY INDICATION: Chest tightness, pressure. EXAMINATION: Chest 07/19/2020. COMPARISON: 06/13/2019 Single view chest. FINDINGS: The cardiomediastinal silhouette is unremarkable. The pulmonary vasculature is within normal limits. The lungs and pleural spaces are clear. IMPRESSION: No evidence of an acute cardiopulmonary process. Dictated on workstation # [id number] Dict: 07/19/20 1744 Trans: 07/19/20 1745 [facility] [id number] Interpreted by: VIDYA MUNGUIA MD Electronically signed by: Reviewed: Reviewed by Me (SHAUNA WAY) Departure Communication (Admissions) [id number] discussed with the patient the negative troponin and reassuring labs and EKG. However advised that we should recheck a troponin at the 2-hour di. He states that he is feeling totally fine at this time and would like to go home. I advised him we cannot completely rule out acute coronary syndrome or heart attack without rechecking this test but he states he is convinced that it is not cardiac. He states that he drank some whiskey last night and smoked a pack of cigarettes and believes these were just ill effects from that. He would like to forego the repeat troponin and go ahead and go on home now. He agrees to sign a refusal of services form. (ARIEL GAMBOA APRN) Impression Primary Impression: Chest pain Disposition: HOME, SELF-CARE Condition: Improved Departure-Patient Inst. Decision time for Depature: 17:53 (ARIEL GAMBOA APRN) Referrals: NO,LOCAL PHYSICIAN (PCP/Family) Primary Care Physician Patient Instructions: Chest Pain SHAUNA WAY Jul 19, 2020 17:00 ARIEL GAMBOA APRN Jul 19, 2020 17:54
[2020-07-19 17:01] LABS: BASOPHILS # (AUTO) 0.1 10^3/uL (0.0-0.1); BASOPHILS % (AUTO) 1 % (0-10); EOSINOPHILS # (AUTO) 0.2 10^3/uL (0.0-0.3); EOSINOPHILS % (AUTO) 2 % (0-10); HEMATOCRIT 41 % (40-54); HEMOGLOBIN 14.2 g/dL (13.3-17.7); LYMPHOCYTES # (AUTO) 2.1 10^3/uL (1.0-4.0); LYMPHOCYTES % (AUTO) 22 % (12-44); MEAN CORPUSCULAR HEMOGLOBIN 31 pg (25-34); MEAN CORPUSCULAR HGB CONC 35 g/dL (32-36); MEAN CORPUSCULAR VOLUME 90 fL (80-99); MEAN PLATELET VOLUME 11.7 fL (9.0-12.2); MONOCYTES # (AUTO) 0.8 10^3/uL (0.0-1.0); MONOCYTES % (AUTO) 8 % (0-12); NEUTROPHILS # (AUTO) 6.1 10^3/uL (1.8-7.8); NEUTROPHILS % (AUTO) 66 % (42-75); PLATELET COUNT 251 10^3/uL (130-400); WHITE BLOOD COUNT 9.2 10^3/uL (4.3-11.0)
[2020-07-19] MEDS: NITROGLYCERIN 0.4 MG SL TABS BTL 25'S SL PRN ×2 (17:03→18:00)
[2020-07-19 17:10] LABS: ALBUMIN 4.6 GM/DL (3.2-4.5)
[2020-07-19 17:11] LABS: CHLORIDE 101 MMOL/L (98-107); POTASSIUM 4.1 MMOL/L (3.6-5.0); SODIUM 136 MMOL/L (135-145)
[2020-07-19 17:12] LABS: CALCIUM 9.2 MG/DL (8.5-10.1)
[2020-07-19 17:13] LABS: GLUCOSE 103 MG/DL (70-105)
[2020-07-19 17:14] LABS: CARBON DIOXIDE 23 MMOL/L (21-32)
[2020-07-19 17:15] LABS: BILIRUBIN,TOTAL 0.4 MG/DL (0.1-1.0)
[2020-07-19] MEDS ORDERED: ALPRAZolam 0.5 MG (XANAX) TAB PO ONE (17:15)
[2020-07-19 17:16] LABS: ALKALINE PHOSPHATASE 63 U/L (40-136)
[2020-07-19 17:17] LABS: CREATININE SERUM 1.19 MG/DL (0.60-1.30); GFR ESTIMATED > 60
[2020-07-19 17:18] LABS: BUN/CREATININE RATIO 10
[2020-07-19 17:19] LABS: ALANINE AMINOTRANSFERASE 22 U/L (0-55); MAGNESIUM 2.1 MG/DL (1.6-2.4)
[2020-07-19 17:25] LABS: PROTHROMBIN TIME PATIENT 13.2 SEC (12.2-14.7)
--- NOTE | 2020-07-19 17:46 | Diagnostic Imaging Report ---
INDICATION: Chest tightness, pressure. EXAMINATION: Chest 07/19/2020. COMPARISON: 06/13/2019 Single view chest. FINDINGS: The cardiomediastinal silhouette is unremarkable. The pulmonary vasculature is within normal limits. The lungs and pleural spaces are clear. IMPRESSION: No evidence of an acute cardiopulmonary process. Dictated by: Dictated on workstation # [id number]
[2020-07-19 18:00] VITALS: BP 146/99
== END 2020-07-19 18:00 | disposition home or self-care (01) ==
LOC: EDUNIT# 16:43 → ER 16:45
DX: R07.9 Chest pain, unspecified (principal); F41.9 Anxiety disorder, unspecified; I10 Essential (primary) hypertension; Z83.3 Family history of diabetes mellitus; Z77.22 Contact with and (suspected) exposure to environmental tobacco smoke (acute) (chronic)
CPT/HCPCS: 36415; 71045; 80053; 83735; 83874; 83880; 84484; 85025; 85610; 85730; 93005; 93041

== ENCOUNTER → 2022-09-30 | Outpatient (CLI) | payer BC | LOC: CARD 13:14 | PROVIDERS: ATTEND Physician Assistant | DX: I10 Essential (primary) hypertension (principal); E11.9 Type 2 diabetes mellitus without complications; E78.5 Hyperlipidemia, unspecified; R07.9 Chest pain, unspecified | CPT/HCPCS: 93306 ==

== ENCOUNTER → 2022-10-08 | Outpatient (CLI) | payer BC ==
[~2022-10-08] MED LIST changes: +CATHETER FLUSH 10 ML SYR IVP PRN
[2022-10-08 15:46] VITALS: BP 192/103
--- NOTE | 2022-10-08 15:46 | Cardiology Stress Test Report ---
Stress Test Report Date of Procedure/Referring: Date of Procedure: October 08, 2022 PCP No,Local Physician Admitting Physician Admitting Physician: Attending Physician: Yumiko Guerrero Indications: CP Baseline Heart Rate: 82 Baseline Blood Pressure: Blood Pressure Systolic: 192 Blood Pressure Diastolic: 103 Baseline Vital Signs NSR Baseline EKG: Baseline EKG: NSR Summary: After explaining the procedure and details to the patient, he signed the consent and was brought to the stress nuclear laboratory. Patient exercised on standard Yusuf protocol, EKG, heart rate and blood pressure were monitored continuously, resting and stress doses of radio tracer were injected, imaging was acquired and reviewed in the short axis, horizontal long axis and vertical long axis views Patient was able to exercise for a total of 7.30 minutes on Yusuf protocol, METs 9.1 Maximum heart rate 153 Maximum blood pressure 155/92 Stress EKG, Minimal nondiagnostic changes Recovery EKG, Return to baseline TID: 1.14 SSS: 0 SDS: 0 EF: 59 Conclusion: Fair exercise tolerance for a total of 7 minutes 30 seconds on standard Yusuf protocol, 9.1 METS achieving 89% of maximal expected heart rate Appropriate heart rate response to exercise return to baseline during recovery Nondiagnostic EKG changes with exercise return to baseline during recovery No ischemia or infarction noted on SPECT images Normal left ventricular size, ejection fraction 59% Copy Copies To 1: [facility]/CORNELIA GARCIA MD October 08, 2022 15:46
== END ==
LOC: CARD 12:21
PROVIDERS: ATTEND Physician Assistant
DX: I10 Essential (primary) hypertension (principal); E11.9 Type 2 diabetes mellitus without complications; E78.5 Hyperlipidemia, unspecified; R07.9 Chest pain, unspecified
CPT/HCPCS: 78452; 93017; A9502

== ENCOUNTER 2023-02-01 12:50 | Emergency (ER) | payer BC ==
[~2023-02-01] VITALS: Ht 182.8 cm; Wt 120.0 kg
[~2023-02-01 12:50] MED LIST changes: -CATHETER FLUSH 10 ML SYR IVP PRN
[2023-02-01] MEDS ORDERED: ASPIRIN 81 MG CHEWABLE TABLET PO ONE (13:15)
--- NOTE | 2023-02-01 13:15 | ED Chest Pain ---
General Chief Complaint: Chest Pain Stated Complaint: BLOOD PRESSURE PROBLEMS Nursing Triage Note: PT AMB TO RM 5 WITH C/O CP AROUND NOON THAT LATED A FEW SECONDS. PT ALSO FELT LIKE HIS BP WAS INCREASING Source: patient Exam Limitations: no limitations History of Present Illness Date Seen by Provider: Feb 01, 2023 Time Seen by Provider: 13:11 Initial Comments Patient is a 52-year-old male with a history of diabetes, hypertension, high c holesterol presents ED with chest pain. Chest pain occurred around 12:00. States he was going up into the second floor at his home. [place] a sharp quick substernal chest pain. This lasted about a second. Patient states he started feeling "woozy". Patient walked back down and checked his blood pressure which read 168/108. Patient states he was able to relax apply cool peas to his neck which improved his blood pressure to about 148/96. States he felt a little short of breath when he was upstairs at the time. He states he did not eat this morning or take his medication. He does take amlodipine, lisinopril, metformin and atorvastatin. He states he had a cardiac stress test and echo performed by Dr. Shah this year which was unremarkable. No known history of a heart attack or cardiac stents. Denies of any current complaint at this time besides he says he feels "kimo". Patient denies abdominal pain, vomit, diarrhea fever,shortness of breath, chills, headache, dizziness, visual changes. Allergies and Home Medications Allergies Coded Allergies: No Known Drug Allergies (Unverified , 08/05/12) Patient Home Medication List Home Medication List Reviewed: Yes Allopurinol (Zyloprim) 100 Mg Tab, 100 MG PO DAILY, (Reported) Entered as Reported by: ISAIAH HARMAN on 08/05/12927 Amlodipine Besylate (Amlodipine Besylate) 5 Mg Tablet, 5 MG PO DAILY Prescribed by: SHAUNA WAY on 06/14/19 0041 Cyclobenzaprine Hcl (Flexeril) 5 Mg Tablet, 1 EACH PO Q8HR PRN, (Reported) Entered as Reported by: ISAIAH HARMAN on 08/05/12927 Indomethacin (Indomethacin) 25 Mg Capsule, 25 MG PO DAILY, (Reported) Entered as Reported by: ISAIAH HARMAN on 08/05/12927 Review of Systems Review of Systems Constitutional: No chills, No diaphoresis EENTM: No Double Vision Respiratory: Denies Cough, Denies Orthopnea; Shortness of Air Cardiovascular: Chest Pain Gastrointestinal: Denies Abdominal Pain, Denies Diarrhea, Denies Nausea, Denies Vomiting Genitourinary: Denies Burning, Denies Discharge, Denies Frequency Musculoskeletal: No back pain, No joint pain Skin: No change in color, No change in hair/nails All Other Systems Reviewed Negative Unless Noted: Yes Past Qdgwunw-Afslgi-Otsqwr Hx Patient Social History Tobacco Use?: Yes Tobacco type used: Cigarettes Substance use?: Yes Substance type: Marijuana Alcohol Use?: Yes Alcohol Frequency: Once in a while Pt feels they are or have been: No Immunizations Up To Date Tetanus Booster (TDap): Unknown Seasonal Allergies Seasonal Allergies: No Past Medical History Surgery/Hospitalization HX: HTN, HLD, DM Surgeries: Yes (R ARM) Orthopedic Respiratory: No Cardiac: Yes High Cholesterol, Hypertension Neurological: No Genitourinary: No Gastrointestinal: No Musculoskeletal: No Endocrine: No HEENT: No Cancer: No Psychosocial: No Integumentary: No Blood Disorders: No Adverse Reaction/Blood Tranf: No Family Medical History Diabetes Physical Exam Vital Signs Vital Signs - First Documented 02/01/23 12:58 Temp 36.5 Pulse 91 Resp 20 B/P (MAP) 142/103 (116) Pulse Ox 100 O2 Delivery Room Air Capillary Refill : Less Than 3 Seconds Height, Weight, BMI Height: 6'1.00" Weight: 265lbs. oz. 120.429832za; 35.00 BMI Method:Stated General Appearance: No Apparent Distress, WD/WN HEENT: PERRL/EOMI, TMs Normal, Normal ENT Inspection, Pharynx Normal Neck: Full Range of Motion, Normal Inspection, Non Tender, Supple Respiratory: Chest Non Tender, Lungs Clear, Normal Breath Sounds, No Accessory Muscle Use, No Respiratory Distress Cardiovascular: Regular Rate, Rhythm, No Edema, No Gallop, No JVD Gastrointestinal: Normal Bowel Sounds, No Organomegaly, No Pulsatile Mass, Non Tender Extremity: Normal Capillary Refill, Normal Inspection, Normal Range of Motion, Non Tender Neurologic/Psychiatric: Alert, Oriented x3, No Motor/Sensory Deficits, Normal Mood/Affect, software technical lead II-XII Norm as Tested Skin: Normal Color, Warm/Dry Progress/Results/Core Measures Results/Orders Lab Results Laboratory Tests Test 02/01/23 13:02 02/01/23 15:13 Range/Units White Blood Count 8.4 4.3-11.0 10^3/uL Red Blood Count 4.61 4.30-5.52 10^6/uL Hemoglobin 14.2 13.3-17.7 g/dL Hematocrit 41 40-54 % Mean Corpuscular Volume 90 80-99 fL Mean Corpuscular Hemoglobin 31 25-34 pg Mean Corpuscular Hemoglobin Concent 34 32-36 g/dL Red Cell Distribution Width 12.4 10.0-14.5 % Platelet Count 216 130-400 10^3/uL Mean Platelet Volume 12.0 9.0-12.2 fL Immature Granulocyte % (Auto) 1 % Neutrophils (%) (Auto) 63 42-75 % Lymphocytes (%) (Auto) 25 12-44 % Monocytes (%) (Auto) 9 0-12 % Eosinophils (%) (Auto) 2 0-10 % Basophils (%) (Auto) 1 0-10 % Neutrophils # (Auto) 5.3 1.8-7.8 10^3/uL Lymphocytes # (Auto) 2.1 1.0-4.0 10^3/uL Monocytes # (Auto) 0.7 0.0-1.0 10^3/uL Eosinophils # (Auto) 0.1 0.0-0.3 10^3/uL Basophils # (Auto) 0.1 0.0-0.1 10^3/uL Immature Granulocyte # (Auto) 0.1 0.0-0.1 10^3/uL Prothrombin Time 12.9 12.2-14.7 SEC INR Comment 1.0 0.8-1.4 Activated Partial Thromboplast Time 31 24-35 SEC Sodium Level 138 135-145 MMOL/L Potassium Level 4.1 3.6-5.0 MMOL/L Chloride Level 104 98-107 MMOL/L Carbon Dioxide Level 24 21-32 MMOL/L Anion Gap 10 5-14 MMOL/L Blood Urea Nitrogen 15 7-18 MG/DL Creatinine 1.21 0.60-1.30 MG/DL Estimat Glomerular Filtration Rate 73 BUN/Creatinine Ratio 12 Glucose Level 119 H 70-105 MG/DL Calcium Level 9.9 8.5-10.1 MG/DL Corrected Calcium 8.5-10.1 MG/DL Magnesium Level 2.0 1.6-2.4 MG/DL Total Bilirubin 0.7 0.1-1.0 MG/DL Aspartate Amino Transf (AST/SGOT) 19 5-34 U/L Alanine Aminotransferase (ALT/SGPT) 22 0-55 U/L Alkaline Phosphatase 58 40-136 U/L Myoglobin 64.8 10.0-92.0 NG/ML Troponin I < 0.028 < 0.028 <0.028 NG/ML B-Type Natriuretic Peptide < 10.0 <100.0 PG/ML Total Protein 7.8 6.4-8.2 GM/DL Albumin 4.6 H 3.2-4.5 GM/DL Lipase 36 8-78 U/L My Orders Orders - ILEANA PERSON PA Ekg Tracing (02/01/23 12:57) Cbc With Automated Diff (02/01/23 13:10) Magnesium (02/01/23 13:10) Chest 1 View, Ap/Pa Only (02/01/23 13:10) Comprehensive Metabolic Panel (02/01/23 13:10) Myoglobin Serum (02/01/23 13:10) Protime With Inr (02/01/23 13:10) Partial Thromboplastin Time (02/01/23 13:10) Monitor-Rhythm Ecg Trace Only (02/01/23 13:10) Lipase (02/01/23 13:10) Bnp Alivia (02/01/23 13:10) Troponin I Hemphill (02/01/23 13:10) Aspirin Chewable Tablet (Aspirin Chewabl (02/01/23 13:15) Troponin I Hemphill (02/01/23 15:02) Medications Given in ED Current Medications Medications Dose Ordered Sig/Brisa Route Start Time Stop Time Status Last Admin Dose Admin Aspirin 324 mg ONCE ONCE PO 02/01/23 13:15 02/01/23 13:16 DC 02/01/23 13:15 162 MG Vital Signs/I&O 02/01/23 02/01/23 12:58 16:12 Temp 36.5 Pulse 91 68 Resp 20 20 B/P (MAP) 142/103 (116) 119/86 Pulse Ox 100 100 O2 Delivery Room Air Room Air Blood Pressure Mean: 116 Comment Sinus rhythm, borderline left axis deviation, 86 bpm, QRS duration 93 MS, QTc 383 MS Departure Communication (PCP) Patient presents to ED with chest pain. Patient Had episode around 12. Patient was going upstairs at his home. States it was hot and muggy in his upstairs. [place] a quick sharp chest pain. Patient did not feel winded or short of breath. No leg swelling. No recent travels or surgeries. Denies any leg pain. He is not tachycardic or hypoxic suggesting PE. low risk factors for PE. Patient pain lasted for a second. He did have a another episode that lasted for a short period of time after talking with patient. Patient checked his blood pressure which read high. Patient is currently asymptomatic. Due to current complaint cardiac work-up was initiated. Differential diagnosis, ACS, pericarditis, pneumonia, electrolyte abnormality, arrhythmia. Patient follows Dr. Shah. Had a cardiac stress test performed October 2022 which did not note any significant ischemic changes. EF 59%. Patient took 2 baby aspirin today. Received 2 baby aspirin on arrival. EKG showed sinus rhythm with without evidence of ST elevation or depression or arrhythmia. No current chest pain at this time. Generalized lab work was grossly unremarkable. Initial troponin negative. Chest x-ray was negative for pneumonia, pneumothorax. Blood pressure was slightly elevated on arrival but did improve without any intervention. Patient with a heart score 3. Does have cardiac risk factors of diabetes, hypertension, dyslipidemia, family cardiac history, smoking. Low suspicion. Due to his recent reassuring stress test and presentation delta troponin was ordered 2 hours out. Patient delta troponin was negative. Remained asymptomatic. Discussed all results with patient. Discussed this could been angina however may have experience palpitations during his event. Clinically appears well. Vital signs remained stable. Recent cardiac work-up and today's lab work reassuring. At this time I will discharge with strict return precautions. Recommend cardiac outpatient follow-up with Dr. Shah. Continue with your blood pressure medication. Return back to ED if symptoms worsen Impression Primary Impression: Chest pain Disposition: HOME, SELF-CARE Condition: Stable Departure-Patient Inst. Decision time for Depature: 15:25 Referrals: LAUREN MOORE APRN (PCP/Family) Primary Care Physician Patient Instructions: Chest Pain, Adult ED Add. Discharge Instructions: Recommend following up with your head of ict for further evaluation. If any worsening chest pain to return back to ED. All discharge instructions reviewed with patient and/or family. Voiced understanding. ILEANA PERSON Feb 01, 2023 13:15
[2023-02-01 13:23] LABS: BASOPHILS # (AUTO) 0.1 10^3/uL (0.0-0.1); BASOPHILS % (AUTO) 1 % (0-10); EOSINOPHILS # (AUTO) 0.1 10^3/uL (0.0-0.3); EOSINOPHILS % (AUTO) 2 % (0-10); HEMATOCRIT 41 % (40-54); HEMOGLOBIN 14.2 g/dL (13.3-17.7); LYMPHOCYTES # (AUTO) 2.1 10^3/uL (1.0-4.0); LYMPHOCYTES % (AUTO) 25 % (12-44); MEAN CORPUSCULAR HEMOGLOBIN 31 pg (25-34); MEAN CORPUSCULAR HGB CONC 34 g/dL (32-36); MEAN CORPUSCULAR VOLUME 90 fL (80-99); MONOCYTES # (AUTO) 0.7 10^3/uL (0.0-1.0); MONOCYTES % (AUTO) 9 % (0-12); NEUTROPHILS # (AUTO) 5.3 10^3/uL (1.8-7.8); NEUTROPHILS % (AUTO) 63 % (42-75); PLATELET COUNT 216 10^3/uL (130-400); WHITE BLOOD COUNT 8.4 10^3/uL (4.3-11.0)
[2023-02-01 13:32] LABS: ALBUMIN 4.6 GM/DL (3.2-4.5); CHLORIDE 104 MMOL/L (98-107); POTASSIUM 4.1 MMOL/L (3.6-5.0); SODIUM 138 MMOL/L (135-145)
--- NOTE | 2023-02-01 13:32 | Diagnostic Imaging Report ---
Indication: Chest pain. Time of Exam: 1:09 PM. Correlation is made with prior chest 07/19/2020. Findings: The heart size is normal. The pulmonary vascularity is unremarkable. The lungs are clear. No infiltrate, effusion or pneumothorax is detected. Impression: No acute cardiopulmonary process is detected. Dictated by: Dictated on workstation # [id number]
[2023-02-01 13:33] LABS: CALCIUM 9.9 MG/DL (8.5-10.1)
[2023-02-01 13:34] LABS: GLUCOSE 119 MG/DL (70-105); TOTAL PROTEIN 7.8 GM/DL (6.4-8.2)
[2023-02-01 13:35] LABS: PROTHROMBIN TIME PATIENT 12.9 SEC (12.2-14.7)
[2023-02-01 13:36] LABS: BILIRUBIN,TOTAL 0.7 MG/DL (0.1-1.0); CARBON DIOXIDE 24 MMOL/L (21-32)
[2023-02-01 13:38] LABS: ALKALINE PHOSPHATASE 58 U/L (40-136); CREATININE SERUM 1.21 MG/DL (0.60-1.30); GFR ESTIMATED 73
[2023-02-01 13:39] LABS: BUN/CREATININE RATIO 12
[2023-02-01 13:41] LABS: ALANINE AMINOTRANSFERASE 22 U/L (0-55)
[2023-02-01 13:42] LABS: LIPASE 36 U/L (8-78)
[2023-02-01 16:12] VITALS: BP 119/86
== END 2023-02-01 16:12 | disposition home or self-care (01) ==
LOC: EDUNIT# 12:50 → ER 12:53
DX: R07.2 Precordial pain (principal); I10 Essential (primary) hypertension; E11.9 Type 2 diabetes mellitus without complications; E78.00 Pure hypercholesterolemia, unspecified; F17.210 Nicotine dependence, cigarettes, uncomplicated; Z91.148 Patient's other noncompliance with medication regimen for other reason; Z79.84 Long term (current) use of oral hypoglycemic drugs; Z79.899 Other long term (current) drug therapy
CPT/HCPCS: 36415; 71045; 80053; 83690; 83735; 83874; 83880; 84484; 85025; 85610; 85730; 93005; 93041